=== PATIENT | male | born 1960 | race Caucasian/White ===

== ENCOUNTER 2020-03-11 03:43 | Emergency (ER) | payer MEDICAID, OTHER ==
[~2020-03-11] VITALS: Ht 182.9 cm; Wt 81.6 kg
[2020-03-11 03:43] VITALS: BP 130/77
--- NOTE | 2020-03-11 03:43 | NUR ---
PT BIBA TO BED 05.
--- NOTE | 2020-03-11 03:45 | NUR ---
59 YO M BIBA FROM THE STREETS FOR C/C OF ACCIDENTAL OVERDOSE ON 80MG OF LEXAPRO. [facility] STATED THAT [facility] FOUND PT LAYING IN THE MIDDLE OF THE STREET WHEN [facility] WAS CALLED TO SCENE. PER PT HE THOUGHT HE WAS TAKING TYLENOL FOR A MCGOVERN BUT HE REALIZED HE TOOK FOUR 20 MG PILLS OF LEXAPRO. PT ARRIVED TO ER WITH VSS, A&O X4, PERRLA 3MM WITH BRISK REACTION. PT REPORTS DIZZINESS. PT STATED TO ME AND [facility] THAT HE HAS BEEN HAVING FEELINGS OF HARMING HIMSELF FOR 2WEEKS NOW. PT STATED THIS HIS FIRST TIME WITH SI AND HE IS HAVING THOUGHTS OF JUMPING FROM A TALL BUILDING. DENIES HI. DENIES ANY PREVIOUS SI ATTEMPTS. NO 5150 HOLD CURRENTLY WRITTEN. PT EXPRESSED SI AFTER PD LEFT. PT PLACED IN GOWN AND ON ORE TESTER/PULSE OX. BED LOCKED AND IN LOWEST POSITION. SIDE RAILS X2. MED HX: [facility], [facility] RX: LEXAPRO ALLERGIES TO SEROQUIL
--- NOTE | 2020-03-11 04:04 | NUR ---
CALLED POISON CONTROL, STATED TO OBTAIN BASELINE EKG, AND REPEAT Q4HRS FOR 12HRS. BE CAUTIOUS OF PROLONGED QTC INTERVALS >500 AN-SECONDS AND >120 AN-SECONDS FOR QRS DURATION. GIVE BICARB IF QRS DURATION IS >120 AN-SECONDS. MONITOR CALCIUM, POTASSIUM, AND MAGNESIUM LEVELS. SEIZURE PRECAUTIONS AND PRN BENZOS FOR POTENTIAL SEIZURE ACTIVITY. TACCHYCARDIA MAY BE ANOTHER ADVERSE EFFECT OF LEXAPRO OVERDOSE.
--- NOTE | 2020-03-11 04:05 | NUR ---
SEIZURE PADS PUT IN PLACE
--- NOTE | 2020-03-11 04:25 | NUR ---
PT UNABLE TO VOID AT THIS TIME. WATER PROVIDED.
--- NOTE | 2020-03-11 04:25 | NUR ---
LABS DRAWN, COVID AND KENISHA SWABS COLLECTED AND SENT TO LAB
--- NOTE | 2020-03-11 04:44 | NUR ---
RAD AT BEDSIDE
[2020-03-11 04:46] LABS: EOSINOPHILS # (AUTO) 0.1 K/uL (0-0.4); HEMOGLOBIN 13.5 g/dL (12.0-18.0); LYMPHOCYTES # (AUTO) 0.3 K/uL (2.0-11.5); MONOCYTES # (AUTO) 0.6 K/uL (0.8-1.0); RED CELL DISTRIBUTION WIDTH 14.6 % (11.6-13.7)
[2020-03-11 04:51] LABS: BASOPHILS % (AUTO) 0.5 % (0.0-2.0); HEMATOCRIT 41.4 % (36-52); LYMPHOCYTES % (AUTO) 3.3 % (20.5-51.1); MEAN CORPUSCULAR HEMOGLOBIN 29 pg (27-31); MEAN CORPUSCULAR HGB CONC 33 g/dL (33-37); MEAN CORPUSCULAR VOLUME 88.7 fL (80-94); MONOCYTES % (AUTO) 8.1 % (1.7-9.3); NEUTROPHILS # (AUTO) 6.9 K/uL (1.8-7.7); PLATELET COUNT (AUTO) 299 K/uL (140-450); RED BLOOD CELL COUNT(AUTO) 4.67 MIL/uL (4.20-6.10); WHITE BLOOD COUNT (AUTO) 7.9 K/uL (4.8-10.8)
--- NOTE | 2020-03-11 05:00 | NUR ---
PT ENCOURAGED TO VOID. WATER GIVEN TO PT. STATES HE WILL TRY TO PROVIDE UA IN A LITTLE BIT.
[2020-03-11 05:05] LABS: ALBUMIN 4.4 g/dL (3.4-5.0); ANION GAP 8.6 (8-16); ASPARTATE AMINOTRANSFERASE 17 U/L (15-37); CARBON DIOXIDE 33.4 mmol/L (21-32); CHLORIDE 103 mmol/L (98-107); CREATININE 1.1 mg/dL (0.6-1.3); GFR ARICAN-AMERICAN 89 mL/min (>90); GLUCOSE 95 mg/dL (74-106); SODIUM SERUM 141 mmol/L (136-145); TOTAL BILIRUBIN 0.7 mg/dL (0.0-1.0); UREA NITROGEN, BLOOD 20 mg/dL (7-18)
[2020-03-11 05:11] LABS: NEUTROPHILS % (AUTO) 87.1 % (42.2-75.2)
[2020-03-11 05:13] LABS: ACETAMINOPHEN < 0.5 ug/ml (10-30); SALICYLATE < 2.8 mg/dL (2.8-20.0)
[2020-03-11 05:22] LABS: PROTHROMBIN TIME 10.2 secs (10.8-13.4)
--- NOTE | 2020-03-11 05:30 | NUR ---
UA COLLECTED AND WALKED TO LAB
[2020-03-11 05:38] LABS: APPEARANCE,URINE CLEAR (CLEAR); BILIRUBIN,URINE NEGATIVE (NEGATIVE); BLOOD, URINE NEGATIVE (NEGATIVE); COLOR,URINE YELLOW (YELLOW); LEUKOCYTE ESTERASE ,URINE NEGATIVE (NEGATIVE); NITRITE, URINE NEGATIVE (NEGATIVE); UGLUCOSE NEGATIVE (NEGATIVE)
[2020-03-11 05:52] LABS: BARBITURATE, URINE NEGATIVE ng/ml (NEG <=200); BENZODIAZEPINE, URINE NEGATIVE ng/mL (NEG <=200); CANNABINOID, URINE NEGATIVE ng/mL (NEG <=50); COCAINE, URINE NEGATIVE ng/mL (NEG <=300); PHENCYCLIDINE SCREEN,URINE NEGATIVE ng/mL (NEG <=25)
[2020-03-11 05:53] LABS: OPIATE, URINE NEGATIVE ng/mL (NEG <=2000)
--- NOTE | 2020-03-11 06:25 | NUR ---
PT SPEAKING WITH TELE PSYCH DOC AT BEDSIDE
--- NOTE | 2020-03-11 06:41 | NUR ---
CALLED JO KEATING TO COME TO ER AND PLACE PT ON 5150 HOLD POST TELE PSYCH EVALUATION.
--- NOTE | 2020-03-11 07:12 | NUR ---
REPORT GIVEN TO ROD MASTERSON. TRANSFER OF CARE AT THIS TIME.
[2020-03-11] MEDS ORDERED: ESCI20TA PO (07:14)
--- NOTE | 2020-03-11 07:15 | NUR ---
REPORT RECEIVED FROM ROD PADILLA. TRANSFER OF CARE AT THIS TIME
--- NOTE | 2020-03-11 07:38 | NUR ---
[place] PD AT BEDSIDE
--- NOTE | 2020-03-11 07:58 | NUR ---
[facility] OFFICER ALINA PLACED PATIENT ON HOLD
--- NOTE | 2020-03-11 08:12 | NUR ---
BREAKFAST TRAY AT BEDSIDE
[2020-03-11] MEDS ORDERED: ACETAMINOPHEN EXTRA STRENGTH 500 MG TAB PO ONE (08:20)
--- NOTE | 2020-03-11 08:21 | NUR ---
PT C/O MCGOVERN 09/28, TYLENOL ADMINISTERED PER ERMD ORDER.
--- NOTE | 2020-03-11 08:45 | NUR ---
PT SLEEPING. RESPIRATIONS REGULAR EVEN AND UNLABORED. PT REMAINS ON BEDSIDE MONITOR. NO DISTRESS NOTED
--- NOTE | 2020-03-11 09:36 | NUR ---
PT SLEEPING. RESPIRATIONS REGULAR EVEN AND UNLABORED. PT REMAINS ON BEDSIDE MONITOR. NO DISTRESS NOTED
--- NOTE | 2020-03-11 11:57 | NUR ---
AWAKE, EATING, LUNCH TRAY AT BEDSIDE
--- NOTE | 2020-03-11 16:01 | NUR ---
PT SLEEPING. RESPIRATIONS REGULAR EVEN AND UNLABORED. PT REMAINS ON BEDSIDE MONITOR. NO DISTRESS NOTED
--- NOTE | 2020-03-11 18:03 | NUR ---
PT RESTING COMFORTABLY, RESPIRATIONS REGULAR EVEN AND UNLABORED. PT REMAINS ON BEDSIDE MONITOR. NO SIGNS OF DISTRESS NOTED.
--- NOTE | 2020-03-11 19:10 | NUR ---
RECIVED REPORT FROM ZELALEM VELASCO. CONTINUATION OF CARE. PT AMBUALTED TO RESTROOM WITH STEADY GAIT. PT REMAINS ON SUICIDE PRECAUTIONS. 1:1 SITTER AT BEDSIDE. PT DENIES PAIN AT THIS TIME. PT REMAINS ON OUTSOLE ROUNDER. VSS. PER PT "MY HEART RATE AND BLOOD PRESSURE RUN LOW USUALLY."
[2020-03-11] MEDS ORDERED: LORazepam 2 MG/ML VIAL IVP ONE (19:50)
--- NOTE | 2020-03-11 21:47 | NUR ---
Patient appears to be resting comfortably in bed. Vital Signs within normal limits. Respirations even and unlabored. Pt remains on SI precautions. Pt 1:[address] bedside.
--- NOTE | 2020-03-11 23:57 | NUR ---
Patient appears to be resting comfortably in bed. Vital Signs within normal limits. Respirations even and unlabored. Pt remains on SI precautions. Pt 1:[address] bedside. Bed is locked and in lowest position.
--- NOTE | 2020-03-12 00:33 | NUR ---
SPOKE WITH FAHEEM FROM [facility]. PER FAHEEM PT ACCEPTED BUT NO BEDS AVAILABLE TIL TOM MORNING. PER FAHEEM REPORT NEEDS TO BE GIVEN @ 0800 . PSYCH: DR. YAIR MD: DR. SPENCER.
--- NOTE | 2020-03-12 06:12 | NUR ---
CONSENT FOR TRANSFER SIGNED BY PT AND ERMD.
--- NOTE | 2020-03-12 07:28 | NUR ---
REPORT GIVEN TO DUKE VELASCO. TRANSFER OF CARE.
--- NOTE | 2020-03-12 07:49 | NUR ---
PT RESTING IN BED, RESPIRATIONS EVEN AND UNLABORED
--- NOTE | 2020-03-12 08:09 | NUR ---
TELEPHONE REPORT GIVEN TO JACQUI ("DANITA") RN AT [facility]
--- NOTE | 2020-03-12 08:14 | NUR ---
PT SITTING UP IN BED, EATING BREAKFAST
--- NOTE | 2020-03-12 09:30 | NUR ---
RIGHT AC IV REMOVED AT THIS TIME (PRIOR TO TRANSPORT TO [facility]) ENDORSED BY HOSSEIN VELASCO
[2020-03-12 09:36] VITALS: BP 118/75
--- NOTE | 2020-03-12 09:36 | NUR ---
REPORT TO [facility] AT BEDSIDE. PT PLACED IN [facility] TO BE TRANSPORTED TO [facility]. PT BELONGINGS RETRIEVED FROM SECURITY AND GIVEN TO [facility].
--- NOTE | 2020-03-12 09:36 | NUR ---
Patient to be transferred to [facility]. Is being transferred due to 5150/SI. Receiving facility has accepting physician and available space. ER physician has signed transfer form. Patient or responsible democrat has agreed to transfer and signed form. Patient belongings inventoried and will be sent with patient. Copy of nursing notes, lab reports, EKG, Physicians Orders and X-rays to be sent with patient.
== END 2020-03-12 09:36 | disposition short-term general hospital (02) ==
LOC: MED 03:43
DX: R45.851 Suicidal ideations (principal); F32.9 Major depressive disorder, single episode, unspecified; G30.9 Alzheimer's disease, unspecified; G10 Huntington's disease; Z20.828 Contact with and (suspected) exposure to other viral communicable diseases
CPT/HCPCS: 36415; 71045; 80053; 80305; 81003; 82310; 83735; 85025; 85610; 87426; 93005; 96374; 99285; G0480; G0482; J2060; U0003